=== PATIENT | male | born 1960 | race Two or more races ===

== ENCOUNTER → 2020-09-18 15:04 | Outpatient (BNVA) | payer MEDICAID, SELFPAY | PROVIDERS: PCP Family Medicine; Referring Provider Family Medicine; Visit Provider Surgery | DX: L72.0 Epidermal cyst (principal) | CPT/HCPCS: 99202 ==

== ENCOUNTER → 2022-07-02 14:52 | Outpatient (BNVA) | payer MEDICAID, SELFPAY | PROVIDERS: PCP Family Medicine; Visit Provider Surgery Vascular Surgery | DX: I73.9 Peripheral vascular disease, unspecified (principal) | CPT/HCPCS: 99202 ==

== ENCOUNTER 2022-07-08 07:50 | Outpatient (REF) | payer MEDICAID, SELFPAY ==
[2022-07-08 09:40] LABS: Blood Urea Nitrogen 12 mg/dL (9-16); Estimated Glomerular Filt Rate > 60
== END 2022-07-08 07:51 | disposition home or self-care (01) ==
LOC: HO.LAB 07:50
PROVIDERS: PCP Family Medicine; Visit Provider Surgery Vascular Surgery
DX: I73.9 Peripheral vascular disease, unspecified (principal)
CPT/HCPCS: 36415; 82565; 84520

== ENCOUNTER 2022-07-16 07:49 | Outpatient (REF) | payer MEDICAID, SELFPAY ==
--- NOTE | ~2022-07-16 | CT_ITS ---
EXAMINATION: CT ANGIOGRAM ABDOMEN AND PELVIS WITH RUN-OFF CLINICAL INFORMATION: Peripheral vascular disease. COMPARISON: None TECHNIQUE: Multiple axial images were obtained through the abdomen, pelvis, and lower extremities following the administration of 100 mL of Omnipaque 350 intravenous contrast. Sagittal, coronal, and MIP oblique sagittal reformatted images were obtained on the CT workstation, uploaded to PACS, and reviewed. Images were evaluated on independent dedicated 3-D workstation and 3-D images were reconstructed with concurrent radiologist supervision and subsequently interpreted. This CT examination was performed using dose optimization techniques as appropriate, variously including the following: *Automated exposure control *Adjustment of mA and/or kV according to patient size (this includes techniques or standardized protocols for targeted exams where dose is matched to indication/reason for exam; i.e. extremities or head) *Use of iterative reconstruction technique DLP: 143 mGy-cm FINDINGS: VASCULATURE: Aorta: Normal in caliber. Scattered atherosclerotic plaque without significant stenosis. Celiac axis, superior mesenteric artery, inferior mesenteric artery and bilateral renal arteries are patent without significant stenosis. Right iliac arteries: Common iliac, external iliac and internal iliac arteries demonstrate diffuse calcified and noncalcified plaque without significant stenosis. Left iliac arteries: Common iliac, external iliac and internal iliac arteries demonstrate diffuse calcified and noncalcified plaque without significant stenosis. Right lower extremity: Common femoral artery demonstrates atherosclerotic plaque without significant stenosis. Diffuse calcified and noncalcified plaque is seen throughout the superficial femoral artery. There are multiple tandem areas of moderate to severe stenosis in the proximal, mid and distal thigh. There are apparent short segment occlusions in the distal thigh extending through the adductor canal. Diffuse atherosclerotic plaque is seen in the popliteal artery with scattered areas of moderate to severe stenosis. Calcified plaque is seen in the proximal below knee runoff vessels. There are questionable short segment occlusions in the proximal posterior tibial artery. Anterior tibial artery and peroneal artery appear patent Left lower extremity: Common femoral artery demonstrates atherosclerotic plaque without significant stenosis. Stents are seen within the [place] superficial femoral artery. The superficial femoral artery and stents are occluded. There is some minimal recanalized flow seen in the distal sensor at the level the adductor canal. There is occlusion off of the proximal popliteal artery. Recanalized flow is seen in the P3 segment of the popliteal artery. Below-knee runoff vessels are diffusely small in caliber but appear patent through the calf NONVASCULAR: Lung bases are clear. Coarse calcification is seen along the right hemidiaphragm. Liver is diffusely decreased in attenuation consistent with severe hepatic steatosis. Solid abdominal organs are otherwise unremarkable. Bowel loops are unremarkable. No free fluid seen in the abdomen and pelvis. Urinary bladder is unremarkable. No pathologic lymphadenopathy or mass lesion seen in the abdomen and pelvis. Osseous structures are intact. CT/CT angio abd aorta runoff IMPRESSION: 1. Right lower extremity demonstrates diffuse atherosclerotic plaque in the superficial femoral artery with multiple tandem areas of moderate to severe stenosis especially in the distal thigh. Diffuse atherosclerotic plaque in the popliteal artery with scattered areas of moderate to severe stenosis. Questionable short segment occlusions in the proximal right posterior tibial artery. Patent flow in the right anterior tibial and peroneal artery 2. Occlusion of the left superficial femoral artery through pre-existing stents with minimal segment of recanalized flow in the distal thigh. There is also occlusion of the P1 and P2 segments of the left popliteal artery. Reconstituted flow seen in the P3 segment of the popliteal artery. Below knee runoff is small in caliber but appears patent 3. Severe hepatic steatosis
[2022-07-16] MEDS: iohexoL 350 MG/ML 100 ML INFUS..BTL IV (09:26)
== END 2022-07-16 07:50 | disposition home or self-care (01) ==
LOC: HO.CT 07:49
PROVIDERS: PCP Family Medicine; Visit Provider Surgery Vascular Surgery
DX: I73.9 Peripheral vascular disease, unspecified (principal)
CPT/HCPCS: 75635; Q9967

== ENCOUNTER → 2022-07-23 09:44 | Outpatient (BNVA) | payer MEDICAID, SELFPAY | PROVIDERS: PCP Family Medicine; Visit Provider Surgery Vascular Surgery | DX: I73.9 Peripheral vascular disease, unspecified (principal) | CPT/HCPCS: 99212 ==

== ENCOUNTER → 2022-07-29 13:19 | Outpatient (REF) | payer MEDICAID, SELFPAY ==
--- NOTE | 2022-07-29 13:22 | ECG_ITS ---
Hook-up date: 2022-07-29 12:36:00 Duration: 24:07:00 Test Indications: PALPS, DM, HTN Medications: 67641 QRS complexes 2700 Ventricular ectopics which represent 2 % of total QRS comp. 23 Supraventricular ectopics which represent <1 % of total QRS comp. * Paced QRS complexs which represent % of total QRS comp. VENTRICULAR ECTOPY 2634 Isolated 38 Bigeminal Cycles 33 Couplets 0 Runs 0 Beats in Runs * Beats LONGEST at * BPM at :: -- * Beats FASTEST at * BPM at :: -- SUPRAVENTRICULAR ECTOPY 23 Isolated 0 Couplets 0 Runs 0 Beats in Runs * Beats LONGEST at * BPM at :: -- * Beats FASTEST at * BPM at :: -- HEART RATES 51 MIN at 00:31:25 2022-07-30 69 AVG 120 MAX at 11:21:16 2022-07-30 LONGEST RR 1.2240 secs at 06:52:36 2022-07-30 S-T LEVELS Channel 1 - 128 mm at 12:36:00 2022-07-29 - 128 mm at 12:36:00 2022-07-29 Channel 2 - 128 mm at 12:36:00 2022-07-29 - 128 mm at 12:36:00 2022-07-29 Channel 3 - 128 mm at 03:15:51 -- - 128 mm at 03:15:51 Underlying rhythm is sinus; Average ventricular rate 69/min; range 51-120/min; Frequent ventricular ectopy, 3% burden; some couplets but no significant runs; Very rare supraventricular ectopy; No diary events. Referred By: Ani Lee Overread By: MUSTAPHA LAGUNA
== END ==
LOC: HO.CARD 13:19
PROVIDERS: PCP Family Medicine; Visit Provider Family Medicine
DX: R00.2 Palpitations (principal); I10 Essential (primary) hypertension; E11.59 Type 2 diabetes mellitus with other circulatory complications
CPT/HCPCS: 93226

== ENCOUNTER → 2022-10-01 10:00 | Outpatient (BNVA) | payer MEDICAID, SELFPAY | PROVIDERS: PCP Family Medicine; Visit Provider Nurse Practitioner Family | DX: R06.83 Snoring (principal); R06.81 Apnea, not elsewhere classified; R40.0 Somnolence | CPT/HCPCS: 99202 ==

== ENCOUNTER → 2023-02-10 09:46 | Outpatient (BNVA) | payer MEDICAID, SELFPAY | PROVIDERS: PCP Family Medicine; Visit Provider Nurse Practitioner Family | DX: R40.0 Somnolence (principal); R06.81 Apnea, not elsewhere classified; R06.83 Snoring | CPT/HCPCS: 99212 ==

== ENCOUNTER → 2023-02-24 09:55 | Outpatient (REF) | payer MEDICAID, SELFPAY | LOC: HO.SL 09:55 | PROVIDERS: PCP Family Medicine; Visit Provider Nurse Practitioner Family | DX: Z13.89 Encounter for screening for other disorder (principal) ==